=== PATIENT | male | born 1965 | race Caucasian/White ===

== ENCOUNTER 2019-12-06 09:15 | Outpatient (CLI) | payer BC, SELFPAY ==
--- NOTE | ~2019-12-06 | US_ITS ---
US abdomen complete EXAMINATION: US Abdomen Complete INDICATION: Left abdominal pain PROCEDURE: Realtime High Resolution abdomen ultrasound. COMPARISON: No prior studies for comparison FINDINGS: Gallbladder within normal limits. No gallstones, pericholecystic fluid, gallbladder wall t hickening or biliary dilatation. Common bile duct measures 4 mm. Liver echotexture is increased, consistent with fatty infiltration.. Pancreas within normal limits. Pancreatic tail is obscured by bowel gas. Spleen is unremarkeable. Renal echotexture is within norm al limits bilaterally without hydronephrosis, contour deforming mass or renal stone. Right kidney maria elena sures 12.2 cm. Left kidney measures 10.7 cm. Visualized aspects of the aorta and IVC are within normal limits. Portal vein is patent. No sonograph ic Hernandez's sign indicated by the technologist. IMPRESSION: 1: Hepatic steatosis. Reviewed, dictated and finalized at location A. GRITY ASSESSOR IMPRESSION: 1: Hepatic steatosis.
== END 2019-12-06 09:16 | disposition home or self-care (01) ==
LOC: ANHIMG 09:16
PROVIDERS: PCP Family Medicine; Visit Provider Nurse Practitioner Family
DX: R10.9 Unspecified abdominal pain (principal); K76.0 Fatty (change of) liver, not elsewhere classified
CPT/HCPCS: 76700

== ENCOUNTER 2020-08-16 01:41 | Outpatient (CLI) | payer BC, SELFPAY ==
[2020-08-16 21:22] LABS: SARS-CoV-2 RNA PCR Negative
== END 2020-08-16 01:42 | disposition home or self-care (01) ==
LOC: ANHCOVIDDT 01:41
PROVIDERS: PCP Family Medicine; Visit Provider Orthopaedic Surgery
DX: Z01.812 Encounter for preprocedural laboratory examination (principal); Z20.828 Contact with and (suspected) exposure to other viral communicable diseases
CPT/HCPCS: 87635; C9803; U0003

== ENCOUNTER 2020-08-19 00:13 | Day surgery (SDC) | payer BC, SELFPAY ==
--- NOTE | 2020-08-18 14:33 | WPDANESEPPF ---
Anes - Initial Pre Proc Eval Procedure: Operation Date: 08/19/20 07:30 Proposed Procedures p Arthroscopic Partial Lateral Meniscectomy Right Knee - Dallas Becker MD Date/Time: 08/18/20 14:33 Surgeon: Dallas Becker MD Pre Op Diagnosis: lateral meniscus tear right knee Patient Data Age: 54 Gender: M Height: 1.8 m Weight: 97.72 kg Allergies Allergy/AdvReac Type Severity Reaction Status Date / Time bee pollen Allergy Intermediate Anxiety Verified 08/04/20 14:40 Sulfa (Sulfonamide Allergy Intermediate Flushing Verified 08/04/20 14:38 Antibiotics) sweating Home Medications Medication Instructions Recorded Confirmed Type tamsulosin 0.4 mg capsule 0.4 mg PO DAILY #90 cap 03/01/20 08/16/20 Rx valacyclovir 500 mg tablet 500 mg PO DAILY #30 tablet 05/27/20 08/16/20 Rx Multi Vitamin 1 caplet PO DAILY 08/04/20 08/16/20 History Patient hx anesthesia problems: none Family hx anesthesia problems: none PMFSH Past Medical History Medical History (Updated 07/05/20 @ 16:43 by Dallas Becker MD) Lateral meniscus, posterior horn derangement Osteoarthritis of right knee Family History Family History Father Family history of lung cancer Patient's father is in good health Mother Patient's mother is in good health Sibling Patient's sister is in good health Patient's brother is in good health Grandparent Diabetes mellitus Malignant neoplasm of prostate Family history of lung cancer Other Family history of scoliosis Social History Social History Smoking status: Never smoker Alcohol intake: current Drinks per week: 2 Alcohol use details: drinks on weekends Substance use: never Living arrangements: with family Spiritual care concerns: No Anes - Eval Final PreProcedure Day of Procedure 08/18/20 14:33 Patient weight: obese Heart: regular rate and rhythm Lungs: clear to auscultation and normal air movement Airway: Mallampati scale class III Neurological: alert and oriented Last oral intake: >/= 8 hours ASA classification: II Emergent: no Anesthetic plan: proceed Anesthesia type and monitoring: general LMA and standard monitoring Informed Consent: The patient's anesthetic plan and its attendant risks and benefits were discussed with the patient/family/POA. Questions were solicited and answers provided to the satisfaction of the patient/family/POA.
[2020-08-19 06:16] VITALS: BP 121/72; PULSE 71; RESP 18; TEMP 37.4; O2SAT 98
[2020-08-19] MEDS: LACTATED RINGERS 1,000 ML 30 ML IV CONT (06:29)
[2020-08-19] MEDS: ACETAMINOPHEN 500 MG TABLET 1000 MG PO (06:37)
[2020-08-19] MEDS: KETOROLAC 15 MG/ML VIAL (*BKC) IV PUSH (06:38)
--- NOTE | 2020-08-19 07:24 | WPDHPUPDATE1 ---
History and Physical Update Update Date/Time: 08/19/20 07:24 History and Physical has been reviewed, including an updated exam of the patient. There are NO changes in the patient's condition. Risks, benefits, and alternatives have been discussed and questions answered. Patient agrees to proceed with procedure.
[2020-08-19] MEDS: ceFAZolin 2 GM/D5W 50 ML 2 GM/50 ML BAG IVPB (07:48)
[2020-08-19] MEDS: BUPIVACAINE/EPINEPHRINE 0.25% 10 ML VIAL 30 ML INFILTRATE (08:06)
[2020-08-19 09:00] VITALS: BP 156/84; PULSE 78; RESP 15; TEMP 36.8; O2SAT 99
[2020-08-19 09:15] VITALS: BP 110/66; PULSE 57; RESP 16; O2SAT 96
[2020-08-19 09:30] VITALS: BP 119/88; PULSE 57; RESP 18; O2SAT 98
[2020-08-19 09:36] VITALS: BP 111/62; PULSE 62; RESP 18
[2020-08-19 10:06] VITALS: BP 108/77; PULSE 63; RESP 18
--- NOTE | 2020-08-19 10:41 | PM.PROC ---
Procedure Note - Detailed Date of procedure: 08/19/20 Pre-op diagnosis: lateral meniscus tear right knee Lateral meniscus tear, right knee Post-op diagnosis: same Procedure performed: Arthroscopic partial lateral meniscectomy. Description of procedure: The patient complained of lateral knee pain. A complex degenerative lateral meniscus test tear was identified, with a significant horizontal degenerative component. Debridement was accomplished with the arthroscopic shaver and punches. The radiofrequency probe was used to stabilize and debride the free edge. There was grade 2/Iii chondromalacia on the central posterior tibia. The femur had grade 1 chondromalacia. The medial femur on the lateral aspect had a grade 2 area that was fairly well contained. The primary weight-bearing aspect remained healthy. The medial meniscus had chondrocalcinosis and a small undersurface split. This appeared stable and there were no signs of significant degeneration along the free margin of the meniscus. It was left in situ. There was some hypertrophic synovium in the medial compartment anteriorly. Gentle debridement was performed. There did not appear to be any significant impingement in this area. A small medial plica of tissue was observed without any significant evidence of degenerative changes secondary to the plica. The patella showed grade 2 chondromalacia which was gently debrided. Anesthesia: GETA Surgeon: Dallas Becker MD Estimated blood loss (mL): 5 Complications: None Condition: stable Disposition: PACU Findings: Procedure Details: The patient was identified and the surgical site confirmed and signed in the preoperative holding area. Antibiotics were started per protocol. She was brought to the operative room and transferred to the OR table. A general anesthetic was administered. Supine position with the operative lower extremity position in the leg aceves after placement of a well padded tourniquet. The leg support was lowered and the contralateral limb was supported with a soft bolster. The knee was prepped and draped in the usual sterile fashion. A time-out was performed. The portal sites were marked and infiltrated with 0.5% Marcaine 20 mL. The limb was exsanguinated and the tourniquet inflated to 300 mL Hg. Standard inferolateral and inferomedial portals were established. Inflow was obtained with the saline pump. The camera was introduced. Diagnostic inspection of the joint was accomplished. The lateral meniscus was debrided with the arthroscopic shaver, punches, and radiofrequency probe until stable. The arthroscopic instruments were removed. The tourniquet released and wounds closed with subcutaneous 3-0 Monocryl absorbable suture. Steri strips and a sterile dressing were applied. A light elastic wrap was placed. The patient was extubated and brought to the recovery room in stable condition.
== END 2020-08-19 10:15 | disposition home or self-care (01) ==
PROVIDERS: PCP Family Medicine; Visit Provider Orthopaedic Surgery
PROC: (CPT 29870; principal; 2020-08-19 07:30)
DX: M23.361 Other meniscus derangements, other lateral meniscus, right knee (principal); M94.261 Chondromalacia, right knee; E66.9 Obesity, unspecified; Z68.30 Body mass index [BMI] 30.0-30.9, adult
CPT/HCPCS: 29881; A9270; J0690; J1100; J1885; J2250; J2405; J2704; J3010; J7120

== ENCOUNTER 2021-01-14 16:24 | Outpatient (CLI) | payer BC, SELFPAY | END 2021-01-14 16:25 | disposition home or self-care (01) | LOC: ANHCOVIDVC 16:24 | PROVIDERS: PCP Family Medicine | DX: Z23 Encounter for immunization (principal) | CPT/HCPCS: 0001A; 91300 ==

== ENCOUNTER 2021-02-04 16:25 | Outpatient (CLI) | payer BC, SELFPAY | END 2021-02-04 16:26 | disposition home or self-care (01) | LOC: ANHCOVIDVC 16:25 | PROVIDERS: PCP Family Medicine | DX: Z23 Encounter for immunization (principal) | CPT/HCPCS: 0002A; 91300 ==

== ENCOUNTER 2021-02-25 08:06 | Outpatient (CLI) | payer BC, SELFPAY ==
--- NOTE | ~2021-02-25 | CT_ITS ---
EXAMINATION: CT abdomen pelvis w con DATE: 02/25/2021 08:49 INDICATION: Abdominal pain TECHNIQUE: Computed tomography (CT) of the abdomen and pelvis was performed with 100 mL Omnipaque-350 intravenous contrast. Automated exposure control and iterative reconstruction technique were employe d. The dose-length product was 983.90 mGy-cm. COMPARISON: 08/10/2018 FINDINGS: Lung bases are clear. Heart size is normal. No pericardial or pleural effusion. Likely mild diffuse h epatic steatosis although specificities decreased by the presence of intravenous contrast. Gallbladde r, spleen, pancreas, bilateral adrenal glands and kidneys are normal. Mild scattered colonic divertic ulosis without adjacent inflammatory change to suggest diverticulitis. Small bowel and appendix are n ormal. Bladder is normal. Mild prostatomegaly. No free intraperitoneal gas or fluid. No pathologicall y enlarged abdominal or pelvic lymphadenopathy. Small fat-containing right inguinal hernia. Severe di sc height loss at L5-S1. Otherwise mild lumbar and moderate lower thoracic spondylosis. Chronic mild anterior wedging at T11-L1. IMPRESSION: 1. No acute intra-abdominal/pelvic process. 2. Mild colonic diverticulosis. Reviewed, dictated and finalized at location A.
== END 2021-02-25 08:07 | disposition home or self-care (01) ==
PROVIDERS: PCP Family Medicine; Visit Provider Nurse Practitioner Family
DX: R10.31 Right lower quadrant pain (principal); R10.32 Left lower quadrant pain; K57.90 Diverticulosis of intestine, part unspecified, without perforation or abscess without bleeding
CPT/HCPCS: 74177; Q9967

== ENCOUNTER 2022-06-14 18:45 | Emergency (ER) | payer OTHER, SELFPAY ==
[2022-06-14 18:52] VITALS: BP 138/80; PULSE 81; RESP 18; TEMP 36.6; O2SAT 98
--- NOTE | 2022-06-14 19:03 | ED.GENADULT ---
HPI - General Adult General Chief complaint: Dental/Oral Stated complaint: Rt Neck and Facial Pain History of Present Illness HPI narrative: Mr. Strickland is a pleasant 56 y/o male. PMHx FLD, BHP, Prostate Carcinoma, OA. Presents to [facility] today with acute complaints of increased nasal congestion, non-productive cough, as well as RT dental pain for the past 4 days. Client reports initially to have had pain to her RT upper molar region on Sunday evening, then started to develop nasal congestion and maxillary facial pressure. Since, congestion has become more frequent, and he has noticed increasing dental pressure and pains. He reports non-productive cough and PND. Has also started to experience tenderness to the right side of his neck. No fevers. No neck stiffness. No falls or facial trauma. No SLOAN, otalgia, or rash/vesicular lesions. Denies chest pain, palpitations, dyspnea. He has had mild reliefs w/home OTC remedies. He had reached out to his Dentist, and has a follow-up scheduled for 1 week, 06/21/2022. He is without additional acute c/o upon PE. Related Data Allergies Allergy/AdvReac Type Severity Reaction Status Date / Time bee pollen Allergy Intermediate Anxiety Verified 06/14/22 18:47 Sulfa (Sulfonamide Allergy Intermediate Flushing Verified 06/14/22 18:47 Antibiotics) sweating Review of Systems Review of Systems: CONSTITUTIONAL: Denies fever, chills, sweats. EYES: Denies visual changes, redness, discharge. ENT: Positive rhinorrhea, congestion. No sore throat, otalgia. CARDIOVASCULAR: Denies chest pain, palpitations, edema. RESPIRATORY: Positive Cough. Denies dyspnea, wheezing. GASTROINTESTINAL: Denies abdominal pain, nausea, vomiting, diarrhea. GENITOURINARY: Denies dysuria, hematuria, abnormal discharge SKIN: Denies rash or itching. MUSCULOSKELETAL: Denies acute back pain, joint pain, or myalgia. NEUROLOGIC: Denies numbness, or focal weakness. PSYCHIATRIC: Denies anxiety or depression. [facility] Past Medical History Medical History BMI 29.0-29.9,adult BPH loc w urin obs/LUTS Fatty infiltration of liver Lateral meniscus, posterior horn derangement Lumbar back pain with radiculopathy affecting lower extremity Osteoarthritis of right knee Prostate cancer Rash Surgical History Surgical History History of prostatectomy S/P lateral meniscectomy of right knee (~08/19/20) Family History Family History Father Family history of lung cancer Tobacco abuse Heart disease Mother Patient's mother is in good health Sibling Patient's sister is in good health Patient's brother is in good health Grandparent Diabetes mellitus Malignant neoplasm of prostate Family history of lung cancer Other Family history of scoliosis Social History Social History Second hand tobacco smoke exposure: Yes Alcohol intake: current Drinks per week: 2 Alcohol use details: drinks on weekends Substance use: never Substance use type: does not use 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 HEAD: normocephalic. EYES: Sclera clear/white. EARS: External ears normal, auditory canals clear and without drainage, TMs normal. NOSE: External nose normal. Positive Rhinorrhea, PND. No obstruction, nares patent. MOUTH: With minimal soft tissue swelling overlying RT lower moral region #s 31-32 respectively. There is dental decay to molars. No fluctuance. Palate is soft. THROAT: Mucous membranes moist, posterior pharynx erythematous. No exudates. N
== END 2022-06-14 19:03 | disposition home or self-care (01) ==
PROVIDERS: Emergency Provider Nurse Practitioner Adult Health; PCP Family Medicine
DX: K08.89 Other specified disorders of teeth and supporting structures (principal); J06.9 Acute upper respiratory infection, unspecified; M17.11 Unilateral primary osteoarthritis, right knee; K76.0 Fatty (change of) liver, not elsewhere classified; Z85.46 Personal history of malignant neoplasm of prostate
CPT/HCPCS: 99213; G0463

== ENCOUNTER → 2023-04-14 08:57 | Outpatient (CLI) | payer BC, SELFPAY ==
--- NOTE | ~2023-04-14 | MR_ITS ---
EXAMINATION: MR lumbar spine wo con DATE: 04/14/2023 09:51 INDICATION: Chronic low back pain. TECHNIQUE: Magnetic resonance imaging (MRI) of the lumbar spine was performed without intravenous con trast. Sequences included sagittal T2-weighted FSE, sagittal T2-weighted FS FSE, sagittal T1-weighted FSE, and axial T2-weighted FSE. COMPARISON: Lumbar spine MRI 03/16/2019 FINDINGS: Bone alignment is normal. There are Schmorl's nodes at most levels. There is mild chronic a nterior wedging of T12 and L1 vertebral bodies. There is a hemangioma in T12 vertebral body. There is mildly decreased disc height at T12-L1 and severely decreased disc height at L5-S1. The distal spina l cord signal intensity is normal. The conus medullaris is at T12-L1. The following disc levels are s pecifically discussed: L1-L2: The disc is bulging. There is mild bilateral facet joint osteoarthritis. There is mild right n eural foraminal stenosis. There is mild central canal stenosis. L2-L3: The disc is bulging. There is mild bilateral facet joint osteoarthritis. There is mild bilater al neural foraminal stenosis. There is mild central canal stenosis. L3-L4: The disc is bulging. There is mild bilateral facet joint osteoarthritis. There is mild bilater al neural foraminal stenosis. There is mild central canal stenosis. L4-L5: The disc is bulging. There is mild bilateral facet joint osteoarthritis. There is mild bilater al neural foraminal stenosis. There is mild central canal stenosis. L5-S1: The disc is bulging. There is mild bilateral facet joint osteoarthritis. There is mild bilater al neural foraminal stenosis. There is mild central canal stenosis. IMPRESSION: 1. Severe lower lumbar spondylosis, stable from 03/16/2019. Reviewed, dictated and finalized at location E.
== END ==
PROVIDERS: PCP Nurse Practitioner Family; Visit Provider Nurse Practitioner Family
DX: M47.896 Other spondylosis, lumbar region (principal)
CPT/HCPCS: 72148

== ENCOUNTER → 2023-09-01 08:32 | Outpatient (CLI) | payer BC, SELFPAY ==
--- NOTE | ~2023-09-01 | MR_ITS ---
MRI of the right shoulder Technique: Axial proton-density fat-sat images, coronal proton density fat-sat and T2 fat-sat images, and sagittal T1-weighted and T2 fat-sat images were acquired. Clinical History: Other shoulder lesions, pain Findings: There is moderate AC joint degenerative change. Coracoclavicular, coracoacromial, and corac ohumeral ligaments appear intact. Supraspinatus and infraspinatus tendons are intact, without partial or full-thickness tear. There is mild to moderate tendinosis. Subscapularis tendon and demonstrates possible focal interstitial tearin g, without high-grade or full-thickness tear. There is mild to moderate tendinosis. Tendon of long he ad of the biceps is intact. There is suspected anterosuperior labral tear with small para-labral cyst present. Inferior glenohumeral ligament is intact. There is mild chondromalacia of the humeral head. No joint effusion of the glenohumeral joint. No fluid distention of the subacromial/subdeltoid bursa. No muscl e atrophy or edema. Impression: Suspected anterior superior labral tear with small para-labral cyst. Probable focal interstitial tearing of the subscapularis tendon. No high-grade partial or full-thickn ess rotator cuff tear. Moderate AC joint degenerative change. Reviewed, dictated and finalized at [facility]. LESS CELLULAR TECHNICIAN Impression: Suspected anterior superior labral tear with small para-labral cyst. Probable focal interstitial tearing of the subscapularis tendon. No high-grade partial or full-thickness rotator cuff tear. Moderate AC joint degenerative change.
--- NOTE | ~2023-09-01 | MR_ITS ---
MRI of the left shoulder Technique: Axial proton-density fat-sat images, coronal proton density fat-sat and T2 fat-sat images, and sagittal T1-weighted and T2 fat-sat images were acquired. Clinical History: Pain Findings: There is mild AC joint degenerative change. Coracoclavicular, coracoacromial, and coracohum eral ligaments are intact. Supraspinatus and infraspinatus tendons are intact, with mild tendinosis. No partial or full-thicknes s tear evident. Subscapularis tendon is intact, with mild tendinosis. Tendon of long head of the vu ps is intact. There is anterior superior labral tear with 1.1 cm lobulated paralabral cyst present (axial image 11) . Inferior glenohumeral ligament is intact. There is probable mild chondral malacia of the humeral head . No joint effusion evident. No fluid distention of the subacromial/subdeltoid bursa. No muscle atrop hy or edema. Impression: Anterior superior labral tear with 1.1 cm associated para labral cyst present. Mild rotator cuff tendinosis. Mild AC joint degenerative change. Reviewed, dictated and finalized at [facility]. T DESK Impression: Anterior superior labral tear with 1.1 cm associated para labral cyst present. Mild rotator cuff tendinosis. Mild AC joint degenerative change.
== END ==
PROVIDERS: PCP Orthopaedic Surgery; Visit Provider Orthopaedic Surgery
DX: M75.81 Other shoulder lesions, right shoulder (principal); M75.82 Other shoulder lesions, left shoulder; M19.012 Primary osteoarthritis, left shoulder; M19.011 Primary osteoarthritis, right shoulder
CPT/HCPCS: 73221

== ENCOUNTER 2023-10-16 17:59 | Emergency (ER) | payer BC, SELFPAY ==
[2023-10-16 18:12] VITALS: BP 128/76; PULSE 71; RESP 16; TEMP 36.7; O2SAT 98
--- NOTE | 2023-10-16 18:19 | ED.GENADULT ---
HPI - General Adult General Chief complaint: Urogenital-Male Stated complaint: uti symptoms Source: patient, RN notes reviewed and old records reviewed Mode of arrival: ambulatory Limitations: no limitations History of Present Illness HPI narrative: 57-year-old male [facility] with complaint urinary frequency, burning with urination that started 4-5 days ago. Patient denies any other symptoms. MD complaint: Burning with urination Onset (ago): day(s) (4-5) Related Data Home Medications Medication Instructions Recorded Confirmed tadalafil 5 mg tablet 5 mg PO PRN PRN Erectile 10/16/23 10/16/23 Dysfunction Allergies Allergy/AdvReac Type Severity Reaction Status Date / Time bee pollen AdvReac Intermediate Anxiety Verified 10/16/23 18:07 Sulfa (Sulfonamide AdvReac Intermediate Flushing Verified 10/16/23 18:07 Antibiotics) sweating Review of Systems Constitutional: Constitutional: Reports no additional constitutional complaints, Denies body ache(s), Denies chills, Denies fatigue, Denies fever(s) and Denies headache(s) Eyes: Eyes: Reports no additional eye complaints and Denies blurry vision ENT: Reports system reviewed and no additional complaints, except as documented, Denies vertigo, Denies dizziness, Denies ear discharge, Denies otalgia, Denies facial pain, Denies headache(s), Denies nasal congestion, Denies nasal discharge, Denies sinus pain, Denies sinus pressure and Denies sore throat Cardiovascular: Cardiovascular: Reports no additional cardiovascular complaints, Denies chest pain, Denies chest pain at rest, Denies rapid heart rate and Denies dyspnea Respiratory: Respiratory: Reports no additional respiratory complaints, Denies chest congestion, Denies cough, Denies pain on inspiration, Denies pain with cough and Denies dyspnea Gastrointestinal: Gastrointestinal: Denies abdominal pain, Denies diarrhea, Denies nausea and Denies vomiting Genitourinary: Genitourinary: Reports dysuria and Reports urinary frequency Integumentary/Breasts: Skin/Breast: Denies rash Neurologic: Reports system reviewed and no additional complaints, except as documented, Denies vertigo, Denies dizziness and Denies headache(s) Endocrine: Endocrine: Denies fatigue PMFSH Past Medical History Medical History BMI 29.0-29.9,adult BMI 32.0-32.9,adult BPH loc w urin obs/LUTS Fatty infiltration of liver Lateral meniscus, posterior horn derangement Lumbar back pain with radiculopathy affecting lower extremity Osteoarthritis of right knee Prostate cancer Rash Surgical History Surgical History History of prostatectomy S/P lateral meniscectomy of right knee (~08/19/20) Family History Family History Father Family history of lung cancer Tobacco abuse Heart disease Mother Patient's mother is in good health Sibling Patient's sister is in good health Patient's brother is in good health Grandparent Diabetes mellitus Malignant neoplasm of prostate Family history of lung cancer Other Family history of scoliosis Social History Social History Smoking status: Never smoker Second hand tobacco smoke exposure: Yes Alcohol intake: current Drinks per week: 2 Alcohol use details: drinks on weekends Substance use: never Substance use type: does not use Lack of Transportation: No Lack of Food: Never True Current Housing: I Have Housing Concerned About Future Housing: No Difficulty Paying Gas/Electric Bills: No Difficulty Paying for Meds: No Currently Unemployed: No Education: High School Diploma/GED Difficulty w/ Childcare or Family Care: No Living arrangements: alone Occupation/Education: occupation Additional occupation/education comments:
== END 2023-10-16 18:24 | disposition home or self-care (01) ==
PROVIDERS: Emergency Provider Registered Nurse; PCP Family Medicine
DX: R35.89 Other polyuria (principal); R30.0 Dysuria; M17.11 Unilateral primary osteoarthritis, right knee; Z85.46 Personal history of malignant neoplasm of prostate; K76.0 Fatty (change of) liver, not elsewhere classified
CPT/HCPCS: 81003; 87086; 99213; G0463

== ENCOUNTER 2025-04-20 10:54 | Outpatient (CLI) | payer OTHER, SELFPAY ==
--- NOTE | ~2025-04-20 | CT_ITS ---
CLINICAL INDICATION: Left lower quadrant pain. Known umbilical hernia COMPARISON: 02/25/2021. TECHNIQUE: Multiple contiguous axial images of the abdomen and pelvis were performed without the admi nistration of intravenous contrast The dose-length product (DLP) was 942.77 mGy-cm. Automated exposure control and iterative reconstruction technique were employed. FINDINGS/OBSERVATIONS: Visualized lower thorax: The bilateral lung bases are clear. The heart is borderline enlarged, without pericardial effusion. Small hiatal hernia is present. Liver: The liver demonstrates homogeneous attenuation and is not enlarged. Gallbladder and biliary system: The gallbladder is only minimally distended, and otherwise unremarkable. Pancreas: Limited evaluation of the pancreas secondary to the lack of intravenous contrast. Spleen: The spleen demonstrates homogeneous attenuation and is not enlarged. Kidneys: The bilateral kidneys are unremarkable, without hydronephrosis or renal calculi. Adrenal glands: Unremarkable. Gastrointestinal tract: 3 mm radiopaque foreign body within the transverse colon, an interval change from 2020. Colonic diverticulosis and mural thickening, most prominent within the descending and rectosigmoid co lons prominence of the vasa recta, but without additional significant surrounding inflammatory change . These findings in the appropriate clinical scenario suggest the presence of acute lateral early div erticulitis for which clinical correlation is needed. Appendix: The air-filled appendix is of normal caliber (axial series, images 113 through 120). Vasculature: Unremarkable. Lymph nodes: No pathologically enlarged or morphologically suspicious lymph nodes within the retroperitoneum or at the root of the mesentery. Pelvic structures: The bladder is decompressed, limiting its evaluation. The prostate gland is not enlarged. Body wall and musculoskeletal: Fat-containing bilateral inguinal hernias, right greater than left. Age-appropriate degenerative disease within the lower lumbar spine. Small fat-containing umbilical hernia. IMPRESSION: Diverticulosis and mural thickening of the rectosigmoid and descending colon with prominence of the v asa recta, although without additional significant surrounding inflammatory change. These findings and the appropriate clinical scenario suggest the presence of acute/early diverticulit is for which clinical correlation is needed. Reviewed, dictated and finalized at location A. IMPRESSION: Diverticulosis and mural thickening of the rectosigmoid and descending colon wi th prominence of the vasa recta, although without additional significant surrou nding inflammatory change. These findings and the appropriate clinical scenario suggest the presence of ac [place]/early diverticulitis for which clinical correlation is needed.
== END 2025-04-20 10:55 | disposition home or self-care (01) ==
LOC: GOSHIMG 10:55
PROVIDERS: PCP Family Medicine; Visit Provider Nurse Practitioner Family
DX: R10.32 Left lower quadrant pain (principal); N50.812 Left testicular pain; K57.30 Diverticulosis of large intestine without perforation or abscess without bleeding
CPT/HCPCS: 74176

== ENCOUNTER 2025-04-20 10:57 | Outpatient (CLI) | payer OTHER, SELFPAY ==
--- NOTE | ~2025-04-20 | XR_ITS ---
EXAM/ PROCEDURE: XR hand RT 2V - 04/20/2025 11:11 CDT HISTORY: 59 years old Male with pain in right hand COMPARISON: None available TECHNIQUE: Three view(s) FINDINGS/ IMPRESSION: There are no fractures or dislocations.Joint space narrowing, subchondral sclerosis, subchondral cyst formation and osteophyte formation, compatible with mild osteoarthritis. Reviewed, dictated and finalized at location A.
== END 2025-04-20 10:58 | disposition home or self-care (01) ==
PROVIDERS: PCP Internal Medicine; Visit Provider Internal Medicine
DX: M79.641 Pain in right hand (principal)
CPT/HCPCS: 73120

== ENCOUNTER 2025-05-26 12:20 | Outpatient (CLI) | payer OTHER, SELFPAY ==
--- NOTE | ~2025-05-26 | US_ITS ---
US scrotum doppler INDICATION: Left scrotal pain TECHNIQUE: Testicular sonogram utilizing grayscale and color Doppler FINDINGS: The testes are normal in size and appearance. No focal lesions are seen. The right testes measures 3.6 x 2.6 x 2.1 cm centimeters, and the left testis measures 3.3 x 2.3 x 2 cm cm. There is normal vascular flow to both testes. The right and left epididymides appear normal. There is a small left hydrocele. There are bilateral varicoceles. IMPRESSION: 1. Bilateral varicoceles. 2: Small left hydrocele. Reviewed, dictated and finalized at location O.
== END 2025-05-26 12:21 | disposition home or self-care (01) ==
LOC: GOSHIMG 12:20
PROVIDERS: PCP Family Medicine; Visit Provider Family Medicine
DX: I86.1 Scrotal varices (principal); N43.3 Hydrocele, unspecified
CPT/HCPCS: 76870; 93976